=== PATIENT | female | born 1995 | race Caucasian/White ===

== ENCOUNTER → 2016-06-21 10:26 | Day surgery (SDC) | payer BC ==
[~2016-06-21 10:26] MED LIST: Buffered Lidocaine 1% SYR 3ML* 3 ML/SYR SYRINGE INTRADERM ONE; Buffered Lidocaine 1% SYR 3ML* 3 ML/SYR SYRINGE ONE; Dexamethasone IV* 4 MG/ML 1 ML (4 MG) ONE; Famotidine IV* 10 MG/ML 2 ML (20 mg) IV ONE; Famotidine IV* 10 MG/ML 2 ML (20 mg) ONE; HYDROmorphone INJ* 1 MG/ML CARPUJECT SYRINGE IV PRN; Ibuprofen TAB* 400 MG ONE; Lidocaine 2% PF * 5 ML VIAL ONE; Lidocaine 4% TOPICAL* 50 ML TOP.SOLN ONE; Metoclopramide TAB* 10 MG ONE; Metoclopramide TAB* 10 MG PO ONE; Midazolam* 1 MG/ML 5 ML VIAL (5 MG) ONE; Ondansetron INJ* 2 MG/ML VIAL IV PRN; Ondansetron INJ* 2 MG/ML VIAL ONE; Oxymetazoline 0.05% NASAL SPR* 15 ML BTL ONE; Propofol* 10 MG/ML 20 ML BTL IV PUSH ONE; fentaNYL* 50 MCG/ML 2 ML VIAL (100 MCG VIAL) ONE; oxyCODONE/Acetamin 5/325 MG* TAB PO PRN
[2016-06-21 11:04] LABS: Manual Entry Verification AS; UR Preg Internal Control QC Line Present; UR Preg Kit Lot# 6060104
[2016-06-21] MEDS: fentaNYL* 50 MCG/ML 2 ML VIAL (100 MCG VIAL) IV PRN ×3 (13:15→14:00)
[2016-06-21 14:13] VITALS: BP 129/86
--- NOTE | 2016-06-22 02:34 | OP ---
DATE OF OPERATION: 06/21/16 - [facility] DATE OF : 89 SURGEON: Tristan Bautista MD. ANESTHESIOLOGIST: Fortino Thompson MD ANESTHESIA: Laryngeal mask anesthesia. PRE-OP DIAGNOSIS: Septal fracture. POST-OP DIAGNOSIS: Septal fracture. Magnetic splints were placed. OPERATIVE PROCEDURE: Closed reduction nasal septal fracture under laryngeal mask anesthesia. COMPLICATIONS: None. DISPOSITION: Good. BLOOD LOSS: None. DESCRIPTION OF PROCEDURE: The patient had a septoplasty done at an outside hospital over her break and she was recently hit on the nose with a medicine ball and she thought that the septum was deviated. She was taken to the operating room, placed supine on the operating room table, maintained with laryngeal mask anesthesia. Her nose was packed bilaterally with cottonoids with oxymetazoline, and 4% lidocaine. I was able to, using a nasal elevator, push the anterior septum more back to the right side, and posteriorly there is bony spur that was not removed with her original surgery. However, the tendency of the anterior septum was to pull back to the left side. Therefore, I put magnetic splints in and sutured in place with a single Prolene. The patient tolerated this procedure well, no complications, was transferred to the recovery room in stable condition. [id number] #: [id number] MTDD
== END | disposition home or self-care (01) ==
LOC: OR 10:26
PROVIDERS: ATTEND Otolaryngology
DX: S02.2XXA Fracture of nasal bones, initial encounter for closed fracture (principal); R01.1 Cardiac murmur, unspecified; W21.09XA Struck by other hit or thrown ball, initial encounter; Y93.79 Activity, other specified sports and athletics; Y92.9 Unspecified place or not applicable
CPT/HCPCS: 81025; A9270-GY; J1100; J2250; J2405; J2704; J3010